=== PATIENT | male | born 1990 | race Caucasian/White ===

== ENCOUNTER 2017-02-26 03:31 | Emergency (ER) | payer SELFPAY ==
[~2017-02-26] VITALS: Ht 188 cm; Wt 72.6 kg
--- NOTE | 2017-02-26 03:31 | NUR ---
Patient was BIB [place] [employer] and taken to [facility].
[2017-02-26 03:39] VITALS: BP 135/89
--- NOTE | 2017-02-26 03:52 | NUR ---
Dr. Lloyd evaluating patient.
[2017-02-26 04:10] VITALS: BP 135/74
--- NOTE | 2017-02-26 04:10 | NUR ---
Patient discharged with v/s stable. Written and verbal after care instructions given and explained. Patient verbalized understanding. Police with in custody. All questions addressed prior to discharge. Advised to follow up with [employer]D.
== END 2017-02-26 04:10 ==
LOC: MED 03:31
DX: Z02.89 Encounter for other administrative examinations (principal); F10.129 Alcohol abuse with intoxication, unspecified; F17.210 Nicotine dependence, cigarettes, uncomplicated; Z88.0 Allergy status to penicillin; Z88.1 Allergy status to other antibiotic agents
CPT/HCPCS: 99283